=== PATIENT | female | born 1990 | race Caucasian/White ===

== ENCOUNTER → 2025-06-08 | Outpatient (CLI) | payer BC, SELFPAY ==
[2025-06-08 18:19] LABS: AST(SGOT) 28 U/L (<=31); Alanine Aminotransfer ALT/SGPT 22 U/L (<=34); Cholesterol 206 mg/dL (<=200); Low Density Lipoprotein Calc. 133 mg/dL; Triglycerides 91 mg/dL; Very Low Density Lipoprotein 18 mg/dL (5-40); cholesterol:hdl ratio screen 3.63
== END | disposition home or self-care (01) ==
LOC: MTLAB 16:33
PROVIDERS: PCP Family Medicine; Referring Provider Physician Assistant; Visit Provider Physician Assistant
DX: L70.0 Acne vulgaris (principal)
CPT/HCPCS: 36415; 80061; 84450; 84460